=== PATIENT | female | born 1965 | race Caucasian/White ===

== ENCOUNTER 2020-03-21 11:42 | Emergency (ER) | payer BC ==
[~2020-03-21] VITALS: Ht 170.2 cm; Wt 59.4 kg
--- NOTE | 2020-03-21 12:07 | NUR ---
patient came in to the er c/o chest pressure 1 hr [employer], took baby aspirin. RUE tingling sensation. On room air, breathing evenly and unlabored. connected to the monitor and pulse ox. kept comfortable, will continue to monitor accordingly.
--- NOTE | 2020-03-21 12:12 | NUR ---
jose a at bedside for x-ray
[2020-03-21] MEDS ORDERED: LORAZEPAM INJ 2 MG/ML VIAL ONE (12:14)
[2020-03-21] MEDS: LORAZEPAM INJ 2 MG/ML VIAL IV ONE (12:18)
[2020-03-21 12:33] LABS: CALCIUM, SERUM 8.9 mg/dL (8.5-10.1); CARBON DIOXIDE 27 mmol/L (21-32); CHLORIDE 101 mmol/L (98-107); CREATININE 0.7 mg/dL (0.6-1.3); GLUCOSE 88 mg/dL (74-106); POTASSIUM 3.8 mmol/L (3.5-5.1); SODIUM SERUM 138 mmol/L (136-145); UREA NITROGEN, BLOOD 11 mg/dL (7-18)
[2020-03-21 12:36] LABS: BASOPHILS # (AUTO) 0.1 /CMM (0.0-0.2); BASOPHILS % (AUTO) 1.8 % (0.0-2.0); HEMATOCRIT 41 % (33-45); HEMOGLOBIN 13.9 g/dL (11.5-14.8); LYMPHOCYTES # (AUTO) 1.7 /CMM (0.8-4.8); LYMPHOCYTES % (AUTO) 42.6 % (20.0-44.0); MEAN CORPUSCULAR HGB CONC 34 g/dl (31.0-36.0); MEAN CORPUSCULAR VOLUME 98 fL (82-100); MONOCYTES # (AUTO) 0.5 /CMM (0.1-1.30); MONOCYTES % (AUTO) 11.7 % (2.0-12.0); NEUTROPHILS # (AUTO) 1.6 /CMM (1.8-8.9); NEUTROPHILS % (AUTO) 41.9 % (43.0-81.0); PLATELET COUNT (AUTO) 224 /CMM (150-450); RED BLOOD CELL COUNT(AUTO) 4.17 MIL/uL (4.0-5.2); WHITE BLOOD COUNT (AUTO) 3.9 K/uL (4.3-11.0)
[2020-03-21 13:12] VITALS: BP 145/71
--- NOTE | 2020-03-21 13:12 | NUR ---
Patient discharged to home in stable condition. Written and verbal after care instructions given. Patient verbalizes understanding of instruction.IV removed. Catheter intact and site benign. Pressure and 4x4 applied to site. No bleeding noted.
== END 2020-03-21 13:12 | disposition home or self-care (01) ==
LOC: ER 11:45
DX: R07.89 Other chest pain (principal); F41.9 Anxiety disorder, unspecified; R00.2 Palpitations; I10 Essential (primary) hypertension; Z91.040 Latex allergy status
CPT/HCPCS: 36415; 71045; 80048; 84484; 85025; 93005 ×2; 96374; 99285; J2060

== ENCOUNTER 2021-06-09 05:57 | Emergency (ER) | payer BC ==
[~2021-06-09] VITALS: Ht 170.2 cm; Wt 59.0 kg
[2021-06-09 06:22] VITALS: BP 165/94
[2021-06-09] MEDS ORDERED: HYDROCORTISONE 1% CREAM 28.35 GM TUBE TP ONE (06:28)
[2021-06-09] MEDS ORDERED: HYDROCORTISONE 0.5% CREAM 28.35 GM TUBE TP SCH (06:30)
--- NOTE | 2021-06-09 06:37 | NUR ---
Patient discharged to home in stable condition. Written and verbal after care instructions given. Patient verbalizes understanding of instruction. Pt ambulatory with a steady gait
--- NOTE | 2021-06-09 06:38 | NUR ---
REMAINDER OF THE MEDICATION IN THE TUBE WAS RELEASED PER MD ORDERED
== END 2021-06-09 06:39 | disposition home or self-care (01) ==
LOC: ER 06:00
DX: L23.9 Allergic contact dermatitis, unspecified cause (principal); I10 Essential (primary) hypertension; Z91.040 Latex allergy status